=== PATIENT | female | born 1965 | race Two or more races ===

== ENCOUNTER 2019-12-05 18:44 | Emergency (ER) | payer SELFPAY ==
[~2019-12-05] VITALS: Ht 170.2 cm; Wt 83.0 kg
[2019-12-05 19:26] VITALS: BP 164/75
== END 2019-12-05 21:00 | disposition home or self-care (01) ==
LOC: ER 18:44
DX: Z11.59 Encounter for screening for other viral diseases (principal); I10 Essential (primary) hypertension
CPT/HCPCS: 99283; C9803; U0003; 99281